=== PATIENT | female | born 1945 | race Caucasian/White ===

== ENCOUNTER 2020-08-16 12:42 | Inpatient (IN) ==
--- NOTE | 2020-08-16 15:17 | History & Physical Report ---
Date of Service August 16, 2020 Assessment & Plan (1) Syncope and collapse: Per cardiology evaluation at [facility], thought secondary to sinus bradycardia - For pacemaker placement tomorrow (2) Bradycardia: - Monitor on telemetry - Pacemaker in AM (3) Mild cognitive impairment: - Continue outpatient Aricept (4) Hypothyroid: - Continue levothyroxine (5) Dyslipidemia: - Continue statin therapy (6) Essential hypertension: - Continue lisinopril as taken outpatient (7) DVT prophylaxis: - SCDs for DVT prophylaxis Patient seen and reviewed with collaborating physician, Dr. Mishra. Plan of care discussed and as outlined above. Code status: full code Tyler Keller PA-C Admission and Anticipated Discharge Date Admission Date: August 16, 2020 History of Present Illness Chief Complaint: Syncope Primary Care Provider: Dr. Kalyn Rodgers This is a 74 y/o female with a PMH of HTN, dyslipidemia, hypothyroidism, osteoporosis, OA and mild cognitive impairment who is being transferred from [facility] for pacemaker placement due to recurrent syncope and sinus bradycardia. Pt was admitted to [facility] on 08/15/20 after an episode of syncope while at a restaurant during which she was apparently unresponsive for about two minutes. She reports sitting at the table at the restaurant then slumping over. She does not recall the event. She was nauseated when she woke up and had at least one episode of emesis. Work-up in the ED at [facility] revealed sinus bradycardia in the 40s-50s and admission was recommended. Pt was initially going to sign out AMA from the ED but became pre-syncopal again so agreed to stay for further evaluation. Cardiology evaluated the pt and determined that the cause of the pts syncope is most likely sick sinus syndrome and recommended pacemaker placement. The cathode ray tube salvage processor spoke with the power engineer who agreed to do the procedure today at [facility] so patient was transferred to this facility for the procedure. Currently, pt is feeling well. No further episodes of near-syncope since admission to [facility] yesterday. Allergies Allergy/AdvReac Type Severity Reaction Status Date / Time Penicillins Allergy Hives Verified 08/16/20 16:58 Home Medications Medication Instructions Recorded Confirmed Type alendronate 70 mg PO WK 08/16/20 08/16/20 History atorvastatin 40 mg PO DAILY 08/16/20 08/16/20 History donepezil [Aricept] 5 mg PO DAILY 08/16/20 08/16/20 History levothyroxine 25 mcg PO DAILY 08/16/20 08/16/20 History lisinopril 10 mg PO DAILY 08/16/20 08/16/20 History multivitamin 1 tab PO QAM 08/16/20 08/16/20 History Past Med/Surg History Medical History (Updated 08/16/20 @ 17:31 by Elsa Keller PA-C) Adenomatous colon polyp Cystocele Dyslipidemia Essential hypertension Hypothyroid Mild cognitive impairment Osteoarthritis Rectocele Surgical History H/O of anterior colporrhaphy History of arthroscopy of knee History of cataract surgery History of hysterectomy History of tonsillectomy and adenoidectomy History of tubal ligation Family History Sister Hypertension Alzheimer disease Social History Smoking Status: Former smoker Hx Alcohol Use: No Hx Substance Use: No Preferred Language: Macedonian Communication Ability: Effective Flat Bed Knitter Required: No Beliefs That Will Affect Care: None Current Living Situation: Alone Other Information That Helps Us Care for You: No Feels Safe at Home: Yes Safety Concerns: Feels Safe At This Time Assistive Devices: Glasses Review of Systems Review of Systems: All systems reviewed & are unremarkable except as noted in HPI & below Constitutional: no fever, no chills, no sweats, no fatigue and no weight loss Eyes: + problem reported (recent increase in floaters); no diplopia and no worsening vision Ear, Nose, Mouth, Throat: no nasal congestion, no sore throat and no dysphagia Respiratory: no cough, no chest congestion, no pain on inspiration and no wheezing Cardiovascular: + syncope; no chest pain, no palpitations, no lightheadedness and no edema Gastrointestinal: as per Subjective / HPI, + nausea and + vomiting; no abdominal pain, no heartburn and no diarrhea/loose stools Genitourinary: no dysuria, no urinary frequency and no hematuria Musculoskeletal: no back pain, no neck pain, no myalgia and no muscle weakness Integumentary: no rash and no skin ulcer Neurologic: no paresthesia, no seizure-like activity, no headache(s) and no confusion Psychiatric: no depression and no anxiety Physical Exam Constitutional: WD/WN, vitals as above Eyes: + anicteric sclerae; no conjunctival abnormality Neck: + trachea not midline Respiratory: no respiratory distress and no labored breathing Auscultation: lungs clear to auscultation bilaterally; no rales, no rhonchi and no wheezes Cardiovascular: Rate/Rhythm: regular rate and regular rhythm Vessels: posterior tibial pulses present and dorsalis pedis pulses present; no carotid bruit Extremities: no calf tenderness and no pedal edema Gastrointestinal (Abdomen): Inspection/Auscultation: normal bowel sounds; abdomen not distended Percussion/Palpation: abdomen soft; abdomen nontender Musculoskeletal: Head/Neck/Chest: normocephalic, head atraumatic and neck supple Skin: no rashes, warm and dry no jaundice Neurologic: moves all extremities; no focal motor deficits Psychiatric: A+Ox3, euthymic affect Results & Data Results & Data ([facility]) Vital Signs (Past 12 Hours) Vital Signs Temp Pulse Resp BP Pulse Ox 08/16/20 14:44 37.1 C 67 20 170/84 H 96 Laboratory Results Short CBC 08/16/20 Range/Units 15:22 WBC 6.29 (4.8-10.8) K/uL Hgb 13.3 (12.0-16.0) g/dL Hct 38.2 (37-47) % Plt Count 217 (130-400) K/uL BMP 08/16/20 15:22 Sodium 142 Potassium 3.8 Chloride 109 H Carbon Dioxide 29 BUN 18 Creatinine 1.17 Glucose 79 Calcium 9.1 Code Status & VTE Plan VTE Prophylaxis Plan VTE Prophylaxis will be ordered: Yes Supervising Physician Co-Signing Physician Notes I have seen and examined the patient and have discussed the case with the provid er above. I agree with the assessment and plan as stated. The patient is a 74-year-old female with symptomatic bradycardia who was transferred from outside hospital for placement of pacemaker. She is scheduled for this in a.m. She is otherwise feeling well at rest and is tolerating p.o. She is expressing some concerns about the procedure and would like to talk with the cardiology team further about the indications and necessity of pacemaker prior to placement. DO Tad (1) Hypothyroid Hypothyroidism type: acquired Qualified Code(s): E03.9 - Hypothyroidism, unspecified
[2020-08-16 15:45] LABS: Basophils # (auto) 0.02 K/uL (0-0.2); Basophils % (auto) 0.3 %; Eosinophils # (auto) 0.04 K/uL (0-0.5); Eosinophils % (auto) 0.6 %; Hematocrit (blood only) 38.2 % (37-47); Hemoglobin 13.3 g/dL (12.0-16.0); Immature Granulocytes # (auto) 0.02 K/uL (0.00-0.02); Immature Granulocytes % (auto) 0.3 %; Lymphocytes # (auto) 1.22 K/uL (1.2-3.4); Lymphocytes % (auto) 19.4 %; Mean Corpuscular Hemoglobin 31.4 pg (25-34); Mean Corpuscular Hgb Conc 34.8 g/dL (32-36); Mean Corpuscular Volume 90.1 fL (80-100); Mean Platelet Volume 10.5 fL (7.4-10.4); Monocytes # (auto) 0.29 K/uL (0.11-0.59); Monocytes % (auto) 4.6 %; Neutrophils % (auto) 74.8 %; Platelet Count 217 K/uL (130-400); RDW Coefficient of Variation 13.1 % (11.5-14.5); RDW Standard Deviation 43.2 fL (36.4-46.3); Red Blood Count 4.24 M/uL (4.2-5.4); White Blood Count 6.29 K/uL (4.8-10.8)
[2020-08-16 15:53] LABS: BUN Creatinine Ratio 15.3 (10-20); Calcium 9.1 mg/dl (8.5-10.1); Creatinine Clr Calc Pharmacy 34.2 ml/min; Est GFR (African American) 52.8; Est GFR (Non-African American) 45.5; INR 1.1 (0.9-1.1); Partial Thromboplastin Ratio 1.2; Partial Thromboplastin Time 30.9 Seconds (21.0-31.0); Potassium 3.8 mmol/L (3.5-5.1); Prothrombin Time 11.3 Seconds (9.0-12.0)
[2020-08-16 16:04] LABS: Thyroid Stimulating Hormone 4.22 uIu/ml (0.300-4.500)
[2020-08-16] MEDS ORDERED: Nursing to Pharmacy Communication SCH (17:00)
[2020-08-16] MEDS ORDERED: PATIENT'S ALLERGY INFO NEEDS ENTERED SCH (17:00)
[2020-08-17] MEDS: LEVOTHYROXINE SODIUM 25 MCG TABLET PO SCH (06:22)
--- NOTE | 2020-08-17 06:35 | Electrocardiogram Report ---
Test Reason : Blood Pressure : / mmHG Vent. Rate : 058 BPM Atrial Rate : 058 BPM P-R Int : 194 ms QRS Dur : 084 ms QT Int : 422 ms P-R-T Axes : 048 008 062 degrees QTc Int : 414 ms Sinus bradycardia Anterior infarct , age undetermined Abnormal ECG No previous ECGs available Confirmed by Victoriano Becerril ([id number]) on 08/17/2020 6:34:33 AM Referred By: NO PCP Confirmed By:Victoriano Becerril
--- NOTE | 2020-08-17 07:38 | Hospitalist Progress Note ---
Date of Service August 17, 2020 Assessment & Plan (1) Syncope and collapse: Per cardiology evaluation at [facility], thought secondary to sick sinus syndrome - Plan for pacemaker placement today by Dr. Shaw (2) Bradycardia: - Monitor on telemetry - Pacemaker today (3) Mild cognitive impairment: - Continue outpatient Aricept (4) Hypothyroid: - Continue levothyroxine (5) Dyslipidemia: - Continue statin therapy (6) Essential hypertension: - Continue lisinopril as taken outpatient (7) DVT prophylaxis: - SCDs for DVT prophylaxis Code status: full code Admission and Anticipated Discharge Date Admission Date: August 16, 2020 Subjective Patient seen in follow-up for syncope, sick sinus rhythm She is currently sitting up in bed, feeling well. Denies chest pain, shortness of breath, dizziness, lightheadedness. Plan for pacemaker placement today by Dr. Shaw Review of Systems Review of Systems: All systems reviewed & are unremarkable except as noted in HPI & below Constitutional: no fever and no chills Respiratory: no cough and no dyspnea Cardiovascular: no chest pain and no palpitations Gastrointestinal: no abdominal pain, no nausea and no vomiting Physical Exam Physical Exam: Constitutional: elderly female sitting up in bed, WD/WN, vitals as above HEENT: NC/AT, EOMI, PERRL Respiratory: no respiratory distress and no labored breathing Auscultation: lungs clear to auscultation bilaterally; no crackles, rhonchi and no wheezes Cardiovascular: Rate/Rhythm: regular rate and regular rhythm Vessels: posterior tibial pulses present and dorsalis pedis pulses present; Extremities: no calf tenderness and no pedal edema Gastrointestinal (Abdomen): Inspection/Auscultation: normal bowel sounds; abdomen not distended Percussion/Palpation: abdomen soft; abdomen nontender Musculoskeletal: Head/Neck/Chest: normocephalic, head atraumatic and neck supple, moves extremities spontaneously Skin: no rashes, warm and dry no jaundice Neurologic: moves all extremities; no focal motor deficits Psychiatric: A+Ox3, euthymic affect Results & Data Results & Data ([facility]) Vital Signs (Past 12 Hours) Vital Signs Temp Pulse Resp BP Pulse Ox 08/17/20 07:05 36.7 C 72 187/91 H 98 08/17/20 03:26 37.0 C 58 L 17 121/62 97 08/17/20 00:37 36.9 C 67 16 131/75 97 08/16/20 20:00 95 08/16/20 19:39 36.9 C 56 L 16 137/68 Laboratory Results 08/16/20 08/16/20 08/16/20 Range/Units 15:22 15:22 15:22 WBC 6.29 (4.8-10.8) K/uL RBC 4.24 (4.2-5.4) M/uL Hgb 13.3 (12.0-16.0) g/dL Hct 38.2 (37-47) % MCV 90.1 (80-100) fL MCH 31.4 (25-34) pg MCHC 34.8 (32-36) g/dL RDW Std Deviation 43.2 (36.4-46.3) fL RDW Coeff of Colten 13.1 (11.5-14.5) % Plt Count 217 (130-400) K/uL MPV 10.5 H (7.4-10.4) fL Immature Gran % (Auto) 0.3 % Neut % (Auto) 74.8 % Lymph % (Auto) 19.4 % [place] % (Auto) 4.6 % Eos % (Auto) 0.6 % Baso % (Auto) 0.3 % Neut # (Auto) 4.70 (1.4-6.5) K/uL Lymph # (Auto) 1.22 (1.2-3.4) K/uL [place] # (Auto) 0.29 (0.11-0.59) K/uL Eos # (Auto) 0.04 (0-0.5) K/uL Baso # (Auto) 0.02 (0-0.2) K/uL Immature Gran # (Auto) 0.02 (0.00-0.02) K/uL PT 11.3 (9.0-12.0) Seconds INR 1.1 (0.9-1.1) APTT 30.9 (21.0-31.0) Seconds PTT Ratio 1.2 Sodium 142 (136-145) mmol/L Potassium 3.8 (3.5-5.1) mmol/L Chloride 109 H (98-107) mmol/L Carbon Dioxide 29 (21-32) mmol/L Anion Gap 4.0 (3-11) BUN 18 (7-18) mg/dl Creatinine 1.17 (0.6-1.2) mg/dl Est Cr Clr Drug Dosing 34.2 ml/min Est GFR ( Amer) 52.8 Est GFR (Non-Af Amer) 45.5 BUN/Creatinine Ratio 15.3 (10-20) Glucose 79 (70-99) mg/dl Calcium 9.1 (8.5-10.1) mg/dl TSH 4.220 (0.300-4.500) uIu/ml Medications Administered Current Inpatient Medications Atorvastatin Calcium (Atorvastatin 40 Mg Tab) 40 mg PO DAILY ANNALISE Stop: 09/16/20 08:59 Last Admin: 08/17/20 07:39 Dose: 40 mg Documented by: Donepezil HCl (Donepezil Hcl 5 Mg Tab) 5 mg PO DAILY ANNALISE Stop: 09/16/20 08:59 Last Admin: 08/17/20 07:39 Dose: 5 mg Documented by: Levothyroxine Sodium (Levothyroxine Sodium 25 Mcg Tablet) 25 mcg PO DAILYBB ANNALISE Stop: 09/16/20 06:29 Last Admin: 08/17/20 06:22 Dose: 25 mcg Documented by: Lisinopril (Lisinopril 10 Mg Tab) 10 mg PO DAILY ANNALISE Stop: 09/16/20 08:59 Last Admin: 08/17/20 07:39 Dose: 10 mg Documented by: Multivitamins (Multivitamin Tab) 1 tab PO QAM ANNALISE Stop: 09/16/20 08:59 Last Admin: 08/17/20 07:39 Dose: 1 tab Documented by: (1) Hypothyroid Hypothyroidism type: acquired Qualified Code(s): E03.9 - Hypothyroidism, unspecified
[2020-08-17] MEDS: lisinopril 10 MG TAB PO SCH (07:39)
[2020-08-17] MEDS: MULTIVITAMIN TAB PO SCH (07:39)
[2020-08-17] MEDS: DONEPEZIL HCL 5 MG TAB PO SCH (07:39)
[2020-08-17] MEDS: ATORVASTATIN 40 MG TAB PO SCH (07:39)
[2020-08-17 08:52] LABS: Hematocrit (blood only) 40.6 % (37-47); Hemoglobin 13.8 g/dL (12.0-16.0); Mean Corpuscular Hemoglobin 30.9 pg (25-34); Mean Corpuscular Volume 90.8 fL (80-100); Mean Platelet Volume 10.6 fL (7.4-10.4); Platelet Count 183 K/uL (130-400); RDW Coefficient of Variation 12.8 % (11.5-14.5); RDW Standard Deviation 42.7 fL (36.4-46.3); Red Blood Count 4.47 M/uL (4.2-5.4); White Blood Count 5.23 K/uL (4.8-10.8)
[2020-08-17 09:27] LABS: BUN Creatinine Ratio 20.8 (10-20); Calcium 9.1 mg/dl (8.5-10.1); Creatinine Clr Calc Pharmacy 41.1 ml/min; Est GFR (African American) 68.8; Est GFR (Non-African American) 59.3; Magnesium 2.3 mg/dl (1.8-2.4); Potassium 3.7 mmol/L (3.5-5.1)
--- NOTE | 2020-08-17 14:42 | History & Physical Bridge Note ---
Date of Service August 17, 2020 History & Physical Bridge Note I have examined the patient, reviewed the History & Physical and in the interval since the performance of the History & Physical I have noted the following changes of clinical significance: pt transferred from [facility] due to syncope and SSS for a ppm; discussed the procedure and potential risks; consents signed
--- NOTE | 2020-08-17 14:42 | Pre Anesthesia Assessment ---
Date of Service August 17, 2020 Pre Sedation Assessment Vital Signs Temp Pulse Resp BP Pulse Ox 08/17/20 11:14 36.8 C 57 L 16 157/89 H 95 08/17/20 07:05 36.7 C 72 187/91 H 98 08/17/20 03:26 37.0 C 58 L 17 121/62 97 08/17/20 00:37 36.9 C 67 16 131/75 97 08/16/20 20:00 95 08/16/20 19:39 36.9 C 56 L 16 137/68 08/16/20 14:44 37.1 C 67 20 170/84 H 96 Cardiovascular + bradycardic Respiratory normal respiratory effort, lungs clear to auscultation Pre-Sedation Airway Assessment Smoking Status: Former smoker Oral Cavity: + WNL Mallampati Class: II ASA: ASA3 NPO Status Date of Last Intake of Fluids: 08/16/20 Date of Last Intake of Solid Food: 08/16/20 Procedure Planning Contraindications for Sedation: none Current Medications Reviewed: Yes Notes The planned sedation has been discussed with the patient. Informed Consent was obtained. I have identified the patient, determined the appropriateness of sedation and have assessed the patient immediately prior to the procedure. All medicine(s) and interventions are by my order.
[2020-08-17] MEDS ORDERED: CLINDAMYCIN PHOS 300 MG/2 ML VIAL ONE ×2 (14:43→14:45)
[2020-08-17] MEDS ORDERED: MIDAZOLAM HCL 5 MG/ML 1 ML VIAL ONE (14:50)
[2020-08-17] MEDS ORDERED: fentaNYL citrate 100 MCG/2 ML VIAL ONE (14:50)
[2020-08-17] MEDS ORDERED: BACITRACIN INJ 50,000 UNIT VIAL ONE (14:50)
[2020-08-17] MEDS ORDERED: BUPIVACAINE 0.5 % 5 MG/1 ML PF 10ML VIAL ONE (14:50)
[2020-08-17] MEDS ORDERED: LIDOCAINE HCL 1% 20 ML VIAL ONE (14:50)
[2020-08-17] MEDS ORDERED: BUPIVACAINE 0.25% 30 ML VIAL ONE (15:00)
--- NOTE | 2020-08-17 16:35 | Operative Report ---
Post Operative Report Pre & Post Diagnosis SSS Operation Date: 08/17/20 14:00 <No data on this case meets the specified criteria> I identified the patient and participated in the time-out.: Yes Procedure Operation Date: 08/17/20 14:00 Actual Procedures p Pacer with A/V Leads (Dual) - Nathaly Shaw DO intracardiac EGM HIS bundle mapping Surgeon Nathaly Shaw DO Licensed Funeral Director And Embalmer none Estimated Blood Loss 20 Findings Consistent with Post-Op Diagnosis Specimens none Description of Procedure see official report I attest to the content of the Intraoperative Record and any orders documented therein. Any exceptions are noted below.
--- NOTE | 2020-08-17 16:35 | Post Anesthesia Assessment ---
Date of Service August 17, 2020 Post Sedation Assessment Vital Signs Temp Pulse Resp BP Pulse Ox 08/17/20 11:14 36.8 C 57 L 16 157/89 H 95 08/17/20 07:05 36.7 C 72 187/91 H 98 08/17/20 03:26 37.0 C 58 L 17 121/62 97 08/17/20 00:37 36.9 C 67 16 131/75 97 08/16/20 20:00 95 08/16/20 19:39 36.9 C 56 L 16 137/68 Recovery Score Activity: Moves 4 extremities Respiration: Deep Breath/Cough Circulation: +/-20% PreAnes Value Consciousness: Fully Awake Oxygen Saturation: > 92% On Room Air Discharge Sedation Level of Care: Fast Track Phase II Post Sedation Plan On clinical assessment, the patient appears to have tolerated the sedation without complications. Patient is recovering as anticipated. Patient will continue to be monitored by nursing and may be discharged when sedation discharge criteria are met per below protocol. Upon Completions of procedure up to 15 minutes continue every 5 minute vital signs and the P.A.R. score; then discharge to a Phase I or Fast Track to Phase II per the following guidelines: * Discharge Patient to appropriate Phase II area if PAR is 8 or greater or return to pre- procedure baseline. The post - procedure orders will be as directed. * If PAR score is less than 8 or not return to pre-procedure baseline then patient will follow Phase I monitoring till PAR is reached for Phase II. The Phase I may be done in procedure room or may call to secure a Phase I area. * If naloxone or flumazenil are used for reversal, hold in Phase I for continued monitoring from when last reversal dose was given for a minimum of 60 minutes or longer pending the nurse and/or physician discretion of patient condition before discharge to Phase II. Please call the Sedation Physician to re-evaluate and complete post-note for discharge to Phase II area. Do NOT discharge from procedure sedation or Phase 1 until post- sedation evaluation note is complete by procedure /sedation MD Sedation Discharge Instructions to be given to the patient at discharge to home.
--- NOTE | 2020-08-17 18:48 | XRay Report ---
SINGLE VIEW CHEST CLINICAL HISTORY: Status post pacemaker implantation. FINDINGS: An AP, portable, upright chest radiograph is obtained. No prior studies are available for c omparison at the time of dictation. A 2-lead cardiac pacemaker has been placed. Leads project over th e right atrial appendage and the right ventricle. The heart is enlarged noting atherosclerotic calcif ication of the thoracic aorta. The pulmonary vasculature is noncongested. Nonspecific interstitial th ickening is likely chronic. There is bibasilar scarring/atelectasis. No airspace consolidation or lar ge pleural effusion is identified. No pneumothorax is seen. The skeletal structures are osteopenic. T he bony thorax is grossly intact. IMPRESSION: 1. A 2-lead cardiac pacemaker has been placed as above. No pneumothorax is seen post procedure. 2. Cardiomegaly without radiographic evidence of congestive failure. 3. No airspace consolidation or large pleural effusion is identified. ACT 112: Negative or not required by law. Electronically signed by: Bin Stuart M.D. 08/17/2020 6:46 PM
[2020-08-18] MEDS: LEVOTHYROXINE SODIUM 25 MCG TABLET PO SCH (05:57)
[2020-08-18 07:25] LABS: Hematocrit (blood only) 39.2 % (37-47); Hemoglobin 13.9 g/dL (12.0-16.0); Mean Corpuscular Hemoglobin 31.4 pg (25-34); Mean Corpuscular Hgb Conc 35.5 g/dL (32-36); Mean Corpuscular Volume 88.5 fL (80-100); Mean Platelet Volume 10.7 fL (7.4-10.4); Platelet Count 202 K/uL (130-400); RDW Coefficient of Variation 12.8 % (11.5-14.5); RDW Standard Deviation 41.4 fL (36.4-46.3); Red Blood Count 4.43 M/uL (4.2-5.4); White Blood Count 6.93 K/uL (4.8-10.8)
[2020-08-18 07:56] LABS: BUN Creatinine Ratio 19.4 (10-20); Calcium 8.9 mg/dl (8.5-10.1); Creatinine Clr Calc Pharmacy 47.2 ml/min; Est GFR (African American) 81.1; Magnesium 2.3 mg/dl (1.8-2.4); Potassium 3.9 mmol/L (3.5-5.1)
[2020-08-18] MEDS: MULTIVITAMIN TAB PO SCH (08:06)
[2020-08-18] MEDS: ATORVASTATIN 40 MG TAB PO SCH (08:06)
[2020-08-18] MEDS: DONEPEZIL HCL 5 MG TAB PO SCH (08:06)
[2020-08-18] MEDS: lisinopril 10 MG TAB PO SCH (08:06)
--- NOTE | 2020-08-18 09:03 | Hospitalist Progress Note ---
Date of Service August 18, 2020 Assessment & Plan (1) Syncope and collapse: Per cardiology evaluation at [facility], secondary to sick sinus syndrome - S/p pacemaker placement by Dr. Shaw on 08/17/20 - Patient tolerated procedure well, feeling well today (2) Bradycardia: - Monitor on telemetry - s/p Pacemaker placement on 08/17 (3) Mild cognitive impairment: - Continue outpatient Aricept (4) Hypothyroid: - Continue levothyroxine (5) Dyslipidemia: - Continue statin therapy (6) Essential hypertension: - Continue lisinopril as taken outpatient (7) DVT prophylaxis: - SCDs for DVT prophylaxis Code status: full code Admission and Anticipated Discharge Date Admission Date: August 16, 2020 Subjective Patient seen in follow-up for syncope, sick sinus rhythm She is currently sitting up in bed, feeling well. Denies chest pain, shortness of breath, dizziness, lightheadedness. S/p pacemaker placement by Dr. Shaw yesterday Review of Systems Review of Systems: All systems reviewed & are unremarkable except as noted in HPI & below Constitutional: no fever and no chills Respiratory: no cough and no dyspnea Cardiovascular: no chest pain and no palpitations Gastrointestinal: no abdominal pain, no nausea and no vomiting Physical Exam Physical Exam: Constitutional: elderly female sitting up in bed, WD/WN, vitals as above, currently patient is wearing a sling HEENT: NC/AT, EOMI, PERRL Respiratory: no respiratory distress and no labored breathing Auscultation: lungs clear to auscultation bilaterally; no crackles, rhonchi and no wheezes Cardiovascular: Rate/Rhythm: regular rate and regular rhythm Vessels: posterior tibial pulses present and dorsalis pedis pulses present; Extremities: no calf tenderness and no pedal edema Gastrointestinal (Abdomen): Inspection/Auscultation: normal bowel sounds; abdomen not distended Percussion/Palpation: abdomen soft; abdomen nontender Musculoskeletal: Head/Neck/Chest: normocephalic, head atraumatic and neck supple, moves extremities spontaneously Skin: no rashes, warm and dry no jaundice Neurologic: moves all extremities; no focal motor deficits Psychiatric: A+Ox3, euthymic affect Results & Data Results & Data ([facility]) Vital Signs (Past 12 Hours) Vital Signs Temp Pulse Pulse Resp BP Pulse Ox 08/18/20 07:00 36.5 C 67 16 167/107 H 96 08/18/20 03:43 36.7 C 63 18 158/95 H 97 08/18/20 02:08 72 08/17/20 23:38 36.9 C 61 17 159/85 H 95 Laboratory Results 08/18/20 08/18/20 08/17/20 Range/Units 06:50 06:50 08:24 WBC 6.93 (4.8-10.8) K/uL RBC 4.43 (4.2-5.4) M/uL Hgb 13.9 (12.0-16.0) g/dL Hct 39.2 (37-47) % MCV 88.5 (80-100) fL MCH 31.4 (25-34) pg MCHC 35.5 (32-36) g/dL RDW Std Deviation 41.4 (36.4-46.3) fL RDW Coeff of Colten 12.8 (11.5-14.5) % Plt Count 202 (130-400) K/uL MPV 10.7 H (7.4-10.4) fL Sodium 139 140 (136-145) mmol/L Potassium 3.9 3.7 (3.5-5.1) mmol/L Chloride 108 H 109 H (98-107) mmol/L Carbon Dioxide 26 27 (21-32) mmol/L Anion Gap 5.0 4.0 (3-11) BUN 16 20 H (7-18) mg/dl Creatinine 0.82 0.94 (0.6-1.2) mg/dl Est Cr Clr Drug Dosing 47.2 41.1 ml/min Est GFR ( Amer) 81.1 68.8 Est GFR (Non-Af Amer) 70.0 59.3 BUN/Creatinine Ratio 19.4 20.8 H (10-20) Glucose 75 78 (70-99) mg/dl Calcium 8.9 9.1 (8.5-10.1) mg/dl Magnesium 2.3 2.3 (1.8-2.4) mg/dl Medications Administered Current Inpatient Medications Atorvastatin Calcium (Atorvastatin 40 Mg Tab) 40 mg PO DAILY ANNALISE Stop: 09/16/20 08:59 Last Admin: 08/18/20 08:06 Dose: 40 mg Documented by: Donepezil HCl (Donepezil Hcl 5 Mg Tab) 5 mg PO DAILY [facility] Stop: 09/16/20 08:59 Last Admin: 08/18/20 08:06 Dose: 5 mg Documented by: Levothyroxine Sodium (Levothyroxine Sodium 25 Mcg Tablet) 25 mcg PO DAILYBB [facility] Stop: 09/16/20 06:29 Last Admin: 08/18/20 05:57 Dose: 25 mcg Documented by: Lisinopril (Lisinopril 10 Mg Tab) 10 mg PO DAILY ANNALISE Stop: 09/16/20 08:59 Last Admin: 08/18/20 08:06 Dose: 10 mg Documented by: Multivitamins (Multivitamin Tab) 1 tab PO QAM ANNALISE Stop: 09/16/20 08:59 Last Admin: 08/18/20 08:06 Dose: 1 tab Documented by: (1) Hypothyroid Hypothyroidism type: acquired Qualified Code(s): E03.9 - Hypothyroidism, unspecified
--- NOTE | 2020-08-18 09:53 | Discharge Summary ---
Date of Service August 18, 2020 Admission HPI Per Admitting Provider This is a 74 y/o female with a PMH of HTN, dyslipidemia, hypothyroidism, osteoporosis, OA and mild cognitive impairment who is being transferred from [facility] for pacemaker placement due to recurrent syncope and sinus bradycardia. Pt was admitted to [facility] on 08/15/20 after an episode of syncope while at a restaurant during which she was apparently unresponsive for about two minutes. She reports sitting at the table at the restaurant then slumping over. She does not recall the event. She was nauseated when she woke up and had at least one episode of emesis. Work-up in the ED at [facility] revealed sinus bradycardia in the 40s-50s and admission was recommended. Pt was initially going to sign out AMA from the ED but became pre-syncopal again so agreed to stay for further evaluation. Cardiology evaluated the pt and determined that the cause of the pts syncope is most likely sick sinus syndrome and recommended pacemaker placement. 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 Currently, pt is feeling well. No further episodes of near-syncope since admission to [facility] yesterday. Admission Exam Per Admitting Provider Constitutional: WD/WN, vitals as above Eyes: + anicteric sclerae; no conjunctival abnormality Neck: + trachea not midline Respiratory: no respiratory distress and no labored breathing Auscultation: lungs clear to auscultation bilaterally; no rales, no rhonchi and no wheezes Cardiovascular: Rate/Rhythm: regular rate and regular rhythm Vessels: posterior tibial pulses present and dorsalis pedis pulses present; no carotid bruit Extremities: no calf tenderness and no pedal edema Gastrointestinal (Abdomen): Inspection/Auscultation: normal bowel sounds; abdomen not distended Percussion/Palpation: abdomen soft; abdomen nontender Musculoskeletal: Head/Neck/Chest: normocephalic, head atraumatic and neck supple Skin: no rashes, warm and dry no jaundice Neurologic: moves all extremities; no focal motor deficits Psychiatric: A+Ox3, euthymic affect Principal Diagnosis Sick sinus syndrome s/p ppm Discharge Exam Constitutional: elderly female sitting up in bed, WD/WN, vitals as above, currently patient is wearing a sling HEENT: NC/AT, EOMI, PERRL Respiratory: no respiratory distress and no labored breathing Auscultation: lungs clear to auscultation bilaterally; no crackles, rhonchi and no wheezes Cardiovascular: Rate/Rhythm: regular rate and regular rhythm Vessels: posterior tibial pulses present and dorsalis pedis pulses present; Extremities: no calf tenderness and no pedal edema Gastrointestinal (Abdomen): Inspection/Auscultation: normal bowel sounds; abdomen not distended Percussion/Palpation: abdomen soft; abdomen nontender Musculoskeletal: Head/Neck/Chest: normocephalic, head atraumatic and neck supple, moves extremities spontaneously Skin: no rashes, warm and dry no jaundice Neurologic: moves all extremities; no focal motor deficits Psychiatric: A+Ox3, euthymic affect Discharge Data Allergies Allergy/AdvReac Type Severity Reaction Status Date / Time Penicillins Allergy Hives Verified 08/16/20 16:58 Consultations 08/17/20 11:24 Consult Cardiology Routine Procedures Performed Operation Date: 08/17/20 14:00 Actual Procedures p Pacer with A/V Leads (Dual) - Nathaly Shaw DO s Bundle of his Recording - Nathaly Shaw DO Ordered Studies 08/17/20 06:45 EP Lab Images for PACS ONCE Hospital Course (1) Syncope and collapse: Per cardiology evaluation at [facility], secondary to sick sinus syndrome - S/p pacemaker placement by Dr. Shaw on 08/17/20 - Patient tolerated procedure well, feeling well today (2) Bradycardia: - Monitor on telemetry - s/p Pacemaker placement on 08/17 (3) Mild cognitive impairment: - Continue outpatient Aricept (4) Hypothyroid: - Continue levothyroxine (5) Dyslipidemia: - Continue statin therapy (6) Essential hypertension: - Continue lisinopril as taken outpatient (7) DVT prophylaxis: - SCDs for DVT prophylaxis Code status: full code Total Time Total Time Spent Total Time Spent (In Minutes): 35 Total Time Includes: Examination of the Patient, Discharge Planning, Medication Reconciliation and Communication With Other Providers Discharge Plan Discharge Items Patient Disposition: Home - Self-Care Reason For Visit: PACEMAKER PLACEMENT Discharge Diagnosis: Sick sinus syndrome s/p ppm Activity: As commented below Activity Comment: do not lift the left elbow over the left shoulder for 1 month Lifting: No more than 10 pounds Lifting Comment: do not lift more than 10 pounds with the left arm for 2 weeks Bathing: Keep incision dry Bathing Comment: keep dressing on and dry until wound check next week Sexual Activity: After two weeks Driving/Machine Use: Resume 1 day after discharge Non-emergency contact: [employer] Call non-emergency contact if: you have any medication questions Follow-up/Referrals: Kalyn Rodgers DO [Primary Care Provider] - (Date & Time 08/25/2020 11:40 AM Provider Kalyn Rodgers DO Department [facility] Date & Time 08/24/2020 11:30 AM Provider [facility] [place] Department Cardiology [facility] ) Diet: Heart Healthy Addtl Attending Provider Instructions: Device and wound check in [facility] on 08/24/2020 at 11:30 Try to wear a surgical bra or sports bra for the next 2 weeks to help with wound healing Follow-up with primary care provider, the appointment was scheduled for you for August 25. Pending Studies at Discharge: No Stand-Alone Forms: My [facility]!, Smoking Cessation Medications and DC Order Prescriptions: Continued multivitamin Tablet 1 tab PO QAM RF: 0 atorvastatin 40 mg Tablet 40 mg PO DAILY RF: 0 donepezil [Aricept] 5 mg Tablet 5 mg PO DAILY RF: 0 alendronate 70 mg Tablet 70 mg PO WK RF: 0 levothyroxine 25 mcg Tablet 25 mcg PO DAILY RF: 0 lisinopril 10 mg Tablet 10 mg PO DAILY RF: 0 Discharge Orders: Discharge Order (Routine); Ordered 08/18/20 Ordered By: Vernon Child Admission Data Admit Date/Time: 08/16/20 16:33 Attending Provider: Vernon Child Admit Provider: Brooklyn Mishra Primary Care Provider: Kalyn Rodgers Other Providers: Brooklyn Mishra ; Nathaly Shaw
--- NOTE | 2020-08-19 05:23 | Electrocardiogram Report ---
Test Reason : Blood Pressure : / mmHG Vent. Rate : 060 BPM Atrial Rate : 060 BPM P-R Int : 254 ms QRS Dur : 086 ms QT Int : 428 ms P-R-T Axes : -19 021 068 degrees QTc Int : 428 ms Atrial-paced rhythm with prolonged AV conduction Anterior infarct (cited on or before 16-AUG-2020) Abnormal ECG When compared with ECG of 16-AUG-2020 15:10, Electronic atrial pacemaker has replaced Sinus rhythm Confirmed by Victoriano Becerril ([id number]) on 08/19/2020 5:23:44 AM Referred By: CRUZ PCP Confirmed By:Victoriano Becerril
--- NOTE | 2020-08-29 01:40 | Operative Report (OR) ---
DATE OF OPERATION: 08/17/2020 PREOPERATIVE DIAGNOSIS: Syncope and sick sinus syndrome. POSTOPERATIVE DIAGNOSIS: Syncope and sick sinus syndrome. PROCEDURE: Dual chamber rate responsive permanent pacemaker under fluoroscopic guidance along with intracardiac electrogram, His bundle region mapping. SURGEON: Nathaly Shaw DO. ASSISTANTS: None. ANESTHESIA: Monitored conscious sedation administered under my supervision by Madai Mcleod. Start time 1510, end time 1625, a total of 3 mg of Versed, 100 mcg of fentanyl. INTRAVENOUS FLUIDS: 130 mL. ANTIBIOTICS: 600 mg clindamycin. BLOOD LOSS: 20 mL. URINE OUTPUT: Not applicable. SPECIMENS: None. FINDINGS: See below. DRAINS: None. INDICATIONS: This is a 74-year-old female with past medical history for hypertension, hyperlipidemia, osteoarthritis, osteoporosis, dementia, hypothyroidism. She was admitted to [facility] secondary to syncope with evidence of sick sinus syndrome, and she was recommended a pacemaker. CONSENT: Consent was obtained prior to the patient going into electrophysiology lab. The patient was informed of the risks, benefits and alternative procedure. Risks include but not limited to sudden cardiac , cardiac arrhythmias, cerebrovascular accident, myocardial infarction, injury to the blood vessels, chamber of the heart, lung, bleeding, and infection. The patient understood these risks and agreed with procedure as planned. Informed consent was obtained. DESCRIPTION OF THE PROCEDURE: The patient was brought into the electrophysiology lab in fasting state. She was connected to continuous cardiac monitoring. A timeout was performed to ensure patient identity and procedure correctly. She was prepped and draped over the left infraclavicular space in normal surgical standard fashion. Monitored conscious sedation was given throughout the procedure for patient's comfort level. [place] precautions maintained throughout the procedure. 10 mL of 1% lidocaine, bupivacaine mixture were given in the left deltopectoral groove. Incision was made in left deltopectoral groove. Blunt dissection performed down to identify the cephalic vein. Cephalic vein was identified and isolated using 0 silk ties. The vein was nicked with an 11 blade and a guidewire was inserted through the vein without any resistance. A 7-Icelandic sheath was inserted over the guidewire without any resistance. Dilator was removed and a second guidewire was inserted through the sheath to allow for retained venous access. Sheath was removed and then 8-Icelandic sheath was inserted over one of the guidewires without any resistance. Guidewire and dilator removed. Then His C315 sheath was advanced into right ventricle over a Glidewire. The Glidewire and dilator were removed. Then, the left bundle lead was advanced through the sheath and intracardiac electrogram mapping of the His bundle region was performed. The AH was found to be 67 milliseconds, HV 91 milliseconds. Then I marked where this His area was when the camera was in BRIGGS 30, came down about 2 cm from that in alignment with the perpendicular extend out to the right ventricular apex to kind of bella where I wanted my left bundle lead to go. Then I positioned the sheath down into that area in BRIGGS 30, then moved the camera to LATVIAN 30 and started to give a series of clockwise turns to start screwing the lead into the septum pausing every so often to see how my QRS morphology in V1 looked and watching that notch move out to the complex as well as my pacing stimulation to QRS peak shortening in V6 as well as impedance drops ____ ultimately looked good and then I gave a puff of contrast to see how well I was into the septum and against the septum. Then the His C315 sheath was slit under fluoroscopic guidance. I then placed a 7-Icelandic SafeSheath over the retained guidewire. The guidewire and dilator removed. The right atrial lead was then advanced into right atrium and positioned interatrial appendage under fluoroscopic guidance. There was adequate pacing and sensing thresholds and no diaphragmatic stimulation with high output pacing. The 7-Icelandic sheath was peeled away and lead was fixated to pectoralis muscle using 0 silk suture. The 8-Icelandic SafeSheath and left bundle lead was then slit and the left bundle lead was fixated to pectoralis muscle using 0 silk suture. A pacemaker pocket was created using blunt dissection over the pectoralis muscle within the pectoralis fascia. The pocket was flushed with copious amounts of bacitracin saline wash and inspected for hemostasis. Pulse generator was attached to the leads making sure the pins were in appropriate position, passed set screw and set screws were all tightened. Pulse generator was then placed in the pocket, making sure that the leads were lying flat beneath the device. A stay stitch using 0 silk suture was used to secure this pectoralis muscle. The incision was then closed in 3-layer fashion with 2-0 Vicryl interrupted suture followed by 3-0 Vicryl interrupted suture, followed by a 4-0 Monocryl running stitch and Dermabond was applied followed by a Telfa and micropore dressing. EQUIPMENT: 1. Pulse generator is Medtronic Bianka XT DR DEMETRIUS Buck [id number], serial number [id number]. 2. Right atrial lead Medtronic 5076-52 cm, serial number [id number]. 3. Left bundle lead, Medtronic 3830-69 cm, serial number [id number]. INTRAOPERATIVE TESTIN. AH was 67 milliseconds, HV 91 milliseconds. 2. Right atrial lead: P waves 1.6 millivolts, impedance 513 ohms, threshold 0.7 volts at 0.4 milliseconds. 3. Left bundle lead: R waves 4.4 millivolts, impedance 722 ohms, threshold 0.4 volts at 0.4 milliseconds. FINAL MEASUREMENTS THROUGH THE DEVICE: 1. Right atrial lead: P waves 2.8 millivolts, impedance 494 ohms, threshold 0.7 volts at 0.4 milliseconds. 2. Left bundle lead: R waves 8.4 millivolts, impedance 722 ohms, threshold 0.5 volts at 0.4 milliseconds. FINAL PARAMETERS: MVP-R 60/130, right atrial amplitude 3.5 volts, pulse width 0.4 milliseconds, sensitivity 0.3 millivolts. Right ventricular amplitude 3.5 volts, pulse width 0.4 milliseconds, sensitivity 1.2 millivolts. IMPRESSION: Successful dual chamber rate responsive permanent pacemaker implantation under fluoroscopic guidance along with intracardiac electrogram, His bundle mapping secondary to sick sinus syndrome and syncope. PLAN: Monitor patient overnight, 12-lead ECG, chest x-ray. She cannot lift the left elbow or left shoulder for 1 month. She cannot lift more than 10 pounds with the left arm for 2 weeks. She is to keep the dressing on and dry until her wound check next week. She is to try to wear a sports bra or surgical bra for the next couple weeks to help with healing. I attest to the content of the Intraoperative Record and any orders documented therein. Any exception s are noted below.
== END 2020-08-18 12:21 | disposition home or self-care (01) | DRG 244 ==
LOC: 2E → SUATTDRO 16:33